=== PATIENT | male | born 1955 | race Caucasian/White ===

== ENCOUNTER 2018-12-26 11:33 | Outpatient (CLI) | payer MEDICARE, MEDICAID ==
[2018-12-26] VITALS (7 sets, daily range): BP systolic 122–171; BP diastolic 78–96
[~2018-12-26] VITALS: Ht 188 cm; Wt 89.8 kg
[2018-12-26] MEDS ORDERED: regadenoson 0.4mg/5ml syringe IV PRN (12:00)
[2018-12-26] MEDS ORDERED: aminophylline 250mg/10ml inj. IV ONE (12:00)
[2018-12-26] MEDS ORDERED: ASPI81TA52 PO (12:01)
[2018-12-26] MEDS ORDERED: ATOR40TA71 PO (12:01)
[2018-12-26] MEDS ORDERED: DOCU-148 PO (12:02)
[2018-12-26] MEDS ORDERED: CARV12.5 PO (12:02)
[2018-12-26] MEDS ORDERED: LISI-600 PO (12:03)
[2018-12-26] MEDS ORDERED: MULT-955 PO (12:03)
[2018-12-26] MEDS ORDERED: PANT-47 PO (12:05)
[2018-12-26] MEDS ORDERED: SENN-162 PO (12:09)
[2018-12-26] MEDS ORDERED: FLO0.4C PO (12:09)
[2018-12-26] MEDS ORDERED: MELA3TAB64 PO (12:10)
[2018-12-26] MEDS ORDERED: ASCO-22 PO (12:11)
[2018-12-26] MEDS ORDERED: TRAZ-251 PO (12:12)
[2018-12-26] MEDS ORDERED: SERT100T PO (12:12)
[2018-12-26] MEDS ORDERED: MORP-92 PO ×2 (12:13→12:14)
[2018-12-26] MEDS ORDERED: HYDR-4353 PO (12:16)
[2018-12-26] MEDS ORDERED: morphine 10mg/ml inj. IV ONE (13:25)
--- NOTE | 2018-12-26 13:28 | NUR ---
PT IN EXCRUCIATING PAIN AND REFUSING TO COMPLETE LEXISCAN. AFTER DISCUSSING REPERCUSSIONS OF NOT COMPLETING TEST (PT WILL NOT BE CLEARED FOR SURGERY) AND OFFERING ADDITIONAL PAIN MANAGEMENT PT RELUCTANTLY AGREED TO COMPLETE TEST. COSME GARCIA SPOKE WITH DR. YOUSIF AND MORPHINE 10MG IV STAT X 1 IS APPROVED.
[2018-12-27] MEDS ORDERED: LIDO1ADH TP (13:42)
[2018-12-27] MEDS ORDERED: BISA10SU60 RC (13:42)
[2018-12-27] MEDS ORDERED: NA P133E4 RC (14:21)
[2018-12-27] MEDS ORDERED: OXYM30MI NS (14:21)
[2018-12-27] MEDS ORDERED: MAGN800O PO (14:21)
[2018-12-27] MEDS ORDERED: HYDR-4353 PO (14:21)
[2018-12-27] MEDS ORDERED: DIPH25CA83 PO (14:21)
== END 2018-12-26 23:59 | disposition home or self-care (01) ==
LOC: RAD 11:33
PROVIDERS: ATTEND Internal Medicine Interventional Cardiology
DX: Z01.818 Encounter for other preprocedural examination (principal); I65.23 Occlusion and stenosis of bilateral carotid arteries; R94.31 Abnormal electrocardiogram [ECG] [EKG]; I10 Essential (primary) hypertension; Z99.3 Dependence on wheelchair
CPT/HCPCS: 78452; 93017; A9500; J2270; J2785

== ENCOUNTER 2018-12-28 11:14 | Inpatient (IN) | payer MEDICARE, MEDICAID ==
[2018-12-27 15:10] LABS: BASOPHILS % (AUTO) 0.4 % (0-1); EOSINOPHILS # (AUTO) 0.1 X10'3 (0-0.9); EOSINOPHILS % (AUTO) 3.3 % (0-6); LYMPHOCYTES # (AUTO) 1.2 X10'3 (1.1-4.8); LYMPHOCYTES % (AUTO) 27.6 % (21-51); MEAN CORPUSCULAR HEMOGLOBIN 28.9 PG (27.0-31.0); MEAN CORPUSCULAR HGB CONC 33.9 g/dL (33.0-36.5); MEAN CORPUSCULAR VOLUME 85.1 FL (78-98); MEAN PLATELET VOLUME 6.8 FL (7.4-10.4); MONOCYTES # (AUTO) 0.6 X10'3 (0-0.9); MONOCYTES % (AUTO) 13.1 % (2-12); NEUTROPHILS # (AUTO) 2.3 X10'3 (1.8-7.7); NEUTROPHILS % (AUTO) 55.6 % (42-75); PRE OP HEMATOCRIT 30.7 % (42.0-52.0); PRE OP PLATELET COUNT 362 X10'3 (140-440); RED CELL DISTRIBUTION WIDTH 16.4 % (11.5-14.5)
[2018-12-27 15:12] LABS: PRE OP HEMOGLOBIN 10.4 g/dL (14.0-17.9)
[2018-12-27 15:20] LABS: ALBUMIN 4.3 G/DL (3.4-5.0); ALBUMIN/GLOBULIN RATIO 1.5 (1.1-1.5); ALKALINE PHOSPHATASE 104 IU/L (46-116); BLOOD UREA NITROGEN 11 MG/DL (7-18); BUN/CREATININE RATIO 13.6 (5.4-32.0); CALCIUM 9.7 MG/DL (8.5-10.1); CHLORIDE 99 MMOL/L (99-107); CREATININE 0.81 MG/DL (0.60-1.10); PRE OP ALT 23 U/L (30-65); PRE OP ANION GAP 8 (8-16); PRE OP AST 15 U/L (10-37); PRE OP BILIRUB, TOTAL 0.5 MG/DL (0.0-1.0); PRE OP GLUCOSE 94 MG/DL (70-104); PRE OP POTASSIUM 3.9 MMOL/L (3.4-5.1); PRE OP SODIUM 136 MMOL/L (135-145); TOTAL PROTEIN 7.2 G/DL (6.4-8.2); eGFR > 90 ML/MIN
[~2018-12-28] VITALS: Ht 188 cm; Wt 80.0 kg
[2018-12-28] VITALS (17 sets, daily range): BP systolic 94–166; BP diastolic 50–93
[~2018-12-28 11:14] MED LIST: ASCO-22 PO; ASPI81TA52 PO; ATOR40TA71 PO; BISA10SU60 RC; CARV12.5 PO; DIPH25CA83 PO; DOCU-148 PO; FLO0.4C PO; HYDR-4353 PO; LIDO1ADH TP; LISI-600 PO; MAGN800O PO; MELA3TAB64 PO; MORP-92 PO; MULT-955 PO; NA P133E4 RC; OXYM30MI NS; PANT-47 PO; SENN-162 PO; SERT100T PO; TRAZ-251 PO; aminophylline inj. 10 ML IV ONE; cefazolin/dext.iso 2gm/50ml 50 ML IV ONE; famotidine 20mg tablet PO ONE; mupirocin 2% nasal ointment 1gm UD NS ONE; ringers solution, lacted 1,000 ML IV SCH; tranexamic acid inj. 1,000 MG in normal saline 100 ML IV ONE; vancomycin inj 1,500 MG in normal saline 300ml IV soln IV ONE
[2018-12-28] MEDS ORDERED: vancomycin 1,000mg inj ONE ×2 (13:15→16:05)
[2018-12-28] MEDS ORDERED: ceFAZolin 1000mg inj ONE (13:15)
[2018-12-28] MEDS ORDERED: tetracaine 1% (10mg/ml) pres. free inj. ONE (13:51)
[2018-12-28] MEDS ORDERED: MIDAZolam 1mg/ml 10ml vial ONE (13:54)
[2018-12-28] MEDS ORDERED: fentaNYL/PF 50MCG/1 ML 2ML syringe ONE (13:54)
[2018-12-28] MEDS ORDERED: calcium chloride 100 MG/1 ML inj IV ONE (14:52)
[2018-12-28] MEDS ORDERED: Thrombin (Bovine) 5,000 unit vial TP ONE (14:55)
[2018-12-28] MEDS ORDERED: ringers solution, lacted 1,000 ML IV SCH (14:59)
[2018-12-28] MEDS ORDERED: ondansetron/PF 4mg/2ml inj IV PRN ×2 (15:00→16:25)
[2018-12-28] MEDS ORDERED: meperidine/PF 25mg/ml syringe IV PRN ×3 (15:00)
[2018-12-28] MEDS ORDERED: morphine 4 MG/ML inj SYRINge IV PRN ×2 (15:00)
[2018-12-28] MEDS ORDERED: proCHLORperazine 10 MG/2 ml inj IV PRN (15:00)
[2018-12-28] MEDS ORDERED: propofol inj 20 ML IV ONE ×2 (16:13)
[2018-12-28] MEDS ORDERED: diphenhydrAMINE 25mg capsule PO PRN ×2 (16:25)
[2018-12-28] MEDS ORDERED: oxyCODONE IR 5mg (immed. release) tablet PO PRN (16:25)
[2018-12-28] MEDS ORDERED: acetaminophen 325mg tablet PO PRN (16:25)
[2018-12-28] MEDS ORDERED: bisacodyl 10mg suppository rectal RC PRN ×2 (16:25→18:20)
[2018-12-28] MEDS ORDERED: HYDROmorphone inj. 0.5 MG/0.5 ML DISP.SYRIN IV PRN (16:25)
--- NOTE | 2018-12-28 16:45 | NUR ---
ADMITTED TO PACU FROM OR ACCOMPANIED BY ANESTHESIA. INTIAL PHYSICAL ASSESSMENT DONE AND RECORDED. REPORT RECEIVED FROM ANESTHESIA.
--- NOTE | 2018-12-28 17:40 | NUR ---
Patient arrived to floor, and wheelchair. Patient alert, good CMS, 2L O2, no skin issues.
--- NOTE | 2018-12-28 17:45 | NUR ---
PACU DISCHARGE CRITERIA MET, REPORT GIVEN TO FLOOR. DENIES PAIN OR DISCOMFORT, TRANSFERRED TO ROOM IN STABLE GOOD CONDITION.
--- NOTE | 2018-12-28 18:18 | NUR ---
Problems reprioritized. Patient report given, questions answered & plan of care reviewed with Karie RUBIO.
[2018-12-28] MEDS ORDERED: MAGNESIUM HYDROXIDE 2400 MG PO PRN (18:20)
[2018-12-28] MEDS ORDERED: non-formulary drug (Na Phos,M-B/Na Phos,Di-Ba* (Fleet's Enema*) 1 BOTTLE) RC SCH (18:20)
[2018-12-28] MEDS: oxyCODONE IR 5mg (immed. release) tablet PO PRN ×2 (19:04→23:47)
[2018-12-28] MEDS ORDERED: HYDROcodone/acetaminophen 10/325mg tab PO SCH (20:00)
[2018-12-28] MEDS ORDERED: tranexamic acid inj. 800 MG in normal saline 100ml IV soln 100 ML IV ONE (20:00)
[2018-12-28] MEDS ORDERED: vancomycin/NS 1 GM ADD-VANTAGE 250 ML IV SCH (20:00)
[2018-12-28] MEDS: diphenhydrAMINE 25mg capsule PO SCH (20:07)
[2018-12-28] MEDS: acetaminophen 325mg tablet PO SCH (20:07)
[2018-12-28] MEDS: docusate sod 100mg capsule PO SCH (20:07)
[2018-12-28] MEDS: morphine ER 15mg tablet PO SCH ×2 (20:09→21:44)
[2018-12-28] MEDS: carVEDilol 12.5mg tablet PO SCH (20:09)
[2018-12-28] MEDS: Melatonin 3mg tablet PO SCH (20:23)
[2018-12-28] MEDS: traZODone 50mg tablet PO SCH (20:24)
[2018-12-28] MEDS: atorvastatin 20mg tablet PO SCH (20:24)
[2018-12-28] MEDS: gabapentin 300mg capsule PO SCH (20:24)
[2018-12-28] MEDS: potassium cl 20mEq in 1/2 NS 1,000 ML IV SCH (20:26)
[2018-12-28] MEDS ORDERED: sennosides 8.6mg tablet PO SCH (21:00)
[2018-12-28] MEDS: sennosides 8.6mg tablet PO SCH (21:00)
[2018-12-28] MEDS: ceFAZolin 1GM/D5W- ADD-VANTAGE 50 ML IV SCH (23:47)
[2018-12-29] VITALS (8 sets, daily range): BP systolic 87–134; BP diastolic 46–65
[2018-12-29] MEDS: potassium cl 20mEq in 1/2 NS 1,000 ML IV SCH ×4 (00:24→19:29)
[2018-12-29] MEDS ORDERED: HYDROcodone/acetaminophen 10/325mg tab PO PRN (01:08)
[2018-12-29] MEDS: acetaminophen 325mg tablet PO SCH ×4 (01:57→20:03)
[2018-12-29] MEDS: diphenhydrAMINE 25mg capsule PO SCH ×4 (01:57→19:59)
[2018-12-29] MEDS: oxyCODONE IR 5mg (immed. release) tablet PO PRN ×3 (04:26→16:44)
--- NOTE | 2018-12-29 06:00 | NUR ---
Patient in room ORTHO 4023. I have received report from Karie RUBIO and had the opportunity to ask questions and assume patient care.
[2018-12-29 06:01] LABS: BASOPHILS % (AUTO) 0.1 % (0-1); EOSINOPHILS % (AUTO) 0.1 % (0-6); HEMATOCRIT 24.1 % (42.0-52.0); HEMOGLOBIN 8.3 g/dl (14.0-17.9); LYMPHOCYTES # (AUTO) 0.7 X10'3 (1.1-4.8); LYMPHOCYTES % (AUTO) 12.4 % (21-51); MEAN CORPUSCULAR HEMOGLOBIN 29.5 PG (27.0-31.0); MEAN CORPUSCULAR HGB CONC 34.7 g/dL (33.0-36.5); MEAN PLATELET VOLUME 6.7 FL (7.4-10.4); MONOCYTES # (AUTO) 0.7 X10'3 (0-0.9); MONOCYTES % (AUTO) 13.8 % (2-12); NEUTROPHILS # (AUTO) 3.9 X10'3 (1.8-7.7); NEUTROPHILS % (AUTO) 73.6 % (42-75); PLATELET COUNT 280 X10'3 (140-440); RED BLOOD COUNT 2.83 X10'6 (4.70-6.10); RED CELL DISTRIBUTION WIDTH 15.9 % (11.5-14.5); WHITE BLOOD COUNT 5.3 X10'3 (4.5-11.0)
--- NOTE | 2018-12-29 06:31 | NUR ---
Problems reprioritized. Patient report given, questions answered & plan of care reviewed with JOANNE EUBANKS.
[2018-12-29 06:32] LABS: ANION GAP 12 (8-16); CHLORIDE 103 MMOL/L (99-107); POTASSIUM 3.9 MMOL/L (3.5-5.1); SODIUM 138 MMOL/L (135-145); TOTAL CARBON DIOXIDE 23.4 MMOL/L (24-32)
[2018-12-29] MEDS: HYDROmorphone 1 mg/ml syringe IV PRN ×2 (06:33→12:46)
[2018-12-29] MEDS: ceFAZolin 1GM/D5W- ADD-VANTAGE 50 ML IV SCH (08:29)
[2018-12-29] MEDS: LIDOcaine 5% patch TP SCH (08:30)
[2018-12-29] MEDS: gabapentin 300mg capsule PO SCH ×3 (08:31→20:02)
[2018-12-29] MEDS: docusate sod 100mg capsule PO SCH ×2 (08:31→19:59)
[2018-12-29] MEDS: sertraline 50mg tablet PO SCH (08:31)
[2018-12-29] MEDS: aspirin 81mg tablet.DR PO SCH (08:31)
[2018-12-29] MEDS: carVEDilol 12.5mg tablet PO SCH ×2 (08:31→19:58)
[2018-12-29] MEDS: multivitamins, therapeutics tablet PO SCH (08:32)
[2018-12-29] MEDS: tamsulosin 0.4mg capsule PO SCH (08:32)
[2018-12-29] MEDS: morphine ER 15mg tablet PO SCH ×3 (08:32→21:00)
[2018-12-29] MEDS: ascorbic acid 500mg tablet PO SCH (08:32)
[2018-12-29] MEDS: lisinopril 10 MG tablet PO SCH (08:32)
[2018-12-29] MEDS: pantoprazole 40mg Tablet.DR PO SCH (08:32)
[2018-12-29] MEDS: enoxaparin 40mg/0.4ml syringe SQ SCH (08:33)
--- NOTE | 2018-12-29 16:08 | NUR ---
Joint replacement consult: Pt seen by RD for written/verbal high protein ed w/ RD contact information provided. Pt agrees to cheese stick TIDWM, lemon-pot[place] soda TID, ensure pudding TIDWM, double patel w/ breakfast, and roast beef sandwich at lunch. Dietary notified. Pt reports mainly eats smaller meals throughout the day and endorses good appetite. LBM 12/26. Will continue to monitor. Addendum: 12/29/18 at [address] Amended: Links added.
--- NOTE | 2018-12-29 18:00 | NUR ---
Patient in room [facility]TH[facility] 4023. I have received report from JOANNE Farooq and had the opportunity to ask questions and assume patient care.
--- NOTE | 2018-12-29 18:31 | NUR ---
Problems reprioritized. Patient report given, questions answered & plan of care reviewed with Martina RUBIO.
[2018-12-29] MEDS: celeCOXIB 100mg capsule PO SCH (19:58)
[2018-12-29] MEDS: sennosides 8.6mg tablet PO SCH (20:02)
[2018-12-29] MEDS: atorvastatin 20mg tablet PO SCH (20:03)
[2018-12-29] MEDS: Melatonin 3mg tablet PO SCH (21:00)
[2018-12-29] MEDS: traZODone 50mg tablet PO SCH (21:30)
--- NOTE | 2018-12-29 23:08 | NUR ---
Pt. BP 87/47 ,HR 82 .Bolus of 250 given per nursing protocol.We will continue with pt. care.
[2018-12-30] VITALS (14 sets, daily range): BP systolic 83–137; BP diastolic 42–77
[2018-12-30] MEDS: diphenhydrAMINE 25mg capsule PO SCH ×4 (02:00→20:22)
[2018-12-30] MEDS: oxyCODONE IR 5mg (immed. release) tablet PO PRN ×2 (02:49→16:10)
[2018-12-30] MEDS: acetaminophen 325mg tablet PO SCH ×3 (02:50→14:37)
[2018-12-30] MEDS: potassium cl 20mEq in 1/2 NS 1,000 ML IV SCH (04:53)
[2018-12-30] MEDS: oxymetazoline 15 ML nasal spray NS PRN ×2 (05:21→14:40)
[2018-12-30 05:39] LABS: BASOPHILS % (AUTO) 0.2 % (0-1); EOSINOPHILS # (AUTO) 0.1 X10'3 (0-0.9); EOSINOPHILS % (AUTO) 1.9 % (0-6); LYMPHOCYTES # (AUTO) 0.9 X10'3 (1.1-4.8); LYMPHOCYTES % (AUTO) 16.5 % (21-51); MEAN CORPUSCULAR HEMOGLOBIN 29.6 PG (27.0-31.0); MEAN CORPUSCULAR HGB CONC 34.4 g/dL (33.0-36.5); MEAN CORPUSCULAR VOLUME 86.1 FL (78-98); MEAN PLATELET VOLUME 6.4 FL (7.4-10.4); MONOCYTES # (AUTO) 0.9 X10'3 (0-0.9); MONOCYTES % (AUTO) 17.8 % (2-12); NEUTROPHILS # (AUTO) 3.3 X10'3 (1.8-7.7); NEUTROPHILS % (AUTO) 63.6 % (42-75); PLATELET COUNT 225 X10'3 (140-440); RED BLOOD COUNT 2.28 X10'6 (4.70-6.10); RED CELL DISTRIBUTION WIDTH 15.8 % (11.5-14.5); WHITE BLOOD COUNT 5.3 X10'3 (4.5-11.0)
[2018-12-30 05:45] LABS: HEMATOCRIT 19.6 % (42.0-52.0); HEMOGLOBIN 6.7 g/dl (14.0-17.9)
--- NOTE | 2018-12-30 06:00 | NUR ---
Patient in room [facility]TH[facility] 4023. I have received report from Martina RUBIO and had the opportunity to ask questions and assume patient care.
--- NOTE | 2018-12-30 06:35 | NUR ---
Problems reprioritized. Patient report given, questions answered & plan of care reviewed with JOANNE Farooq.
[2018-12-30] MEDS: pantoprazole 40mg Tablet.DR PO SCH (07:58)
[2018-12-30] MEDS: sertraline 50mg tablet PO SCH (07:58)
[2018-12-30] MEDS: gabapentin 300mg capsule PO SCH ×3 (07:58→20:22)
[2018-12-30] MEDS: ascorbic acid 500mg tablet PO SCH (07:58)
[2018-12-30] MEDS: morphine ER 15mg tablet PO SCH ×3 (07:58→22:03)
[2018-12-30] MEDS: tamsulosin 0.4mg capsule PO SCH (07:58)
[2018-12-30] MEDS: celeCOXIB 100mg capsule PO SCH ×2 (07:58→20:21)
[2018-12-30] MEDS: aspirin 81mg tablet.DR PO SCH (07:58)
[2018-12-30] MEDS: multivitamins, therapeutics tablet PO SCH (07:58)
[2018-12-30] MEDS: docusate sod 100mg capsule PO SCH ×2 (07:58→20:22)
[2018-12-30] MEDS: enoxaparin 40mg/0.4ml syringe SQ SCH (07:59)
[2018-12-30] MEDS: LIDOcaine 5% patch TP SCH (08:00)
[2018-12-30] MEDS: lisinopril 10 MG tablet PO SCH (08:00)
[2018-12-30] MEDS: carVEDilol 12.5mg tablet PO SCH ×2 (08:00→20:22)
--- NOTE | 2018-12-30 12:00 | NUR ---
Patient has not voided, Bladder scanned and volume was 320ml. Will bladder scan again if patient does not void.
[2018-12-30 13:49] LABS: HEMATOCRIT 24.7 % (42.0-52.0); HEMOGLOBIN 8.5 g/dl (14.0-17.9); MEAN CORPUSCULAR HEMOGLOBIN 29.6 PG (27.0-31.0); MEAN CORPUSCULAR HGB CONC 34.3 g/dL (33.0-36.5); MEAN CORPUSCULAR VOLUME 86.3 FL (78-98); PLATELET COUNT 225 X10'3 (140-440); RED BLOOD COUNT 2.86 X10'6 (4.70-6.10); WHITE BLOOD COUNT 5.2 X10'3 (4.5-11.0)
--- NOTE | 2018-12-30 15:30 | NUR ---
Bladder scanned patient. Urine volume was 638ml. Spoke to Dr. Mcgowan, when the urine volume is over 1,000ml to give patient a choice of straight cath or ferrell catheter placement.
[2018-12-30] MEDS ORDERED: acetaminophen 325mg tablet PO PRN (16:25)
--- NOTE | 2018-12-30 17:55 | NUR ---
Bladder Scanned patient: 826ml. Patient is attempting to void in urinal. Will reassess
--- NOTE | 2018-12-30 18:15 | NUR ---
Patient in room [facility]TH[facility] 4023. I have received report from JOANNE Farooq and had the opportunity to ask questions and assume patient care.
--- NOTE | 2018-12-30 18:23 | NUR ---
Problems reprioritized. Patient report given, questions answered & plan of care reviewed with Martina RUBIO.
[2018-12-30] MEDS: magnesium hydroxide 30ml (MOM) UD suspension PO PRN (20:21)
[2018-12-30] MEDS: sennosides 8.6mg tablet PO SCH (20:22)
[2018-12-30] MEDS: atorvastatin 20mg tablet PO SCH (20:22)
[2018-12-30] MEDS: traZODone 50mg tablet PO SCH (22:03)
[2018-12-30] MEDS: Melatonin 3mg tablet PO SCH (22:03)
[2018-12-31] MEDS: diphenhydrAMINE 25mg capsule PO SCH ×2 (02:00→09:07)
[2018-12-31] MEDS: oxyCODONE IR 5mg (immed. release) tablet PO PRN ×2 (02:56→11:06)
[2018-12-31] MEDS: oxymetazoline 15 ML nasal spray NS PRN (04:25)
[2018-12-31 05:59] LABS: BASOPHILS % (AUTO) 0.2 % (0-1); EOSINOPHILS # (AUTO) 0.2 X10'3 (0-0.9); EOSINOPHILS % (AUTO) 3.3 % (0-6); HEMATOCRIT 23.2 % (42.0-52.0); LYMPHOCYTES # (AUTO) 0.7 X10'3 (1.1-4.8); LYMPHOCYTES % (AUTO) 14.3 % (21-51); MEAN CORPUSCULAR HEMOGLOBIN 29.8 PG (27.0-31.0); MEAN CORPUSCULAR HGB CONC 34.6 g/dL (33.0-36.5); MONOCYTES # (AUTO) 0.9 X10'3 (0-0.9); MONOCYTES % (AUTO) 17.9 % (2-12); NEUTROPHILS # (AUTO) 3.3 X10'3 (1.8-7.7); NEUTROPHILS % (AUTO) 64.3 % (42-75); PLATELET COUNT 244 X10'3 (140-440); RED CELL DISTRIBUTION WIDTH 14.9 % (11.5-14.5); WHITE BLOOD COUNT 5.1 X10'3 (4.5-11.0)
[2018-12-31 06:00] VITALS: BP 95/50
--- NOTE | 2018-12-31 06:20 | NUR ---
Patient in room [facility]TH[facility] 4023. I have received report from Martina RUBIO and had the opportunity to ask questions and assume patient care.
--- NOTE | 2018-12-31 06:28 | NUR ---
Problems reprioritized. Patient report given, questions answered & plan of care reviewed with JOANNE Farooq.
[2018-12-31] MEDS: tamsulosin 0.4mg capsule PO SCH (07:12)
[2018-12-31 07:44] LABS: ANISOCYTOSIS 1+; PLATELET ESTIMATE NORMAL; TOTAL CELLS COUNTED 100
[2018-12-31] MEDS: lisinopril 10 MG tablet PO SCH (08:00)
[2018-12-31] MEDS: carVEDilol 12.5mg tablet PO SCH (08:00)
--- NOTE | 2018-12-31 08:30 | NUR ---
Patient is unable to void at this time and bladder scan revealed >900ml. Per Dr. Mcgowan Shane may be placed for urinary retention. Shane Catheter was placed, patient tolerated well.
[2018-12-31] MEDS: sertraline 50mg tablet PO SCH (09:03)
[2018-12-31] MEDS: ascorbic acid 500mg tablet PO SCH (09:04)
[2018-12-31] MEDS: pantoprazole 40mg Tablet.DR PO SCH (09:04)
[2018-12-31] MEDS: multivitamins, therapeutics tablet PO SCH (09:04)
[2018-12-31] MEDS: celeCOXIB 100mg capsule PO SCH (09:04)
[2018-12-31] MEDS: docusate sod 100mg capsule PO SCH (09:04)
[2018-12-31] MEDS: gabapentin 300mg capsule PO SCH (09:04)
[2018-12-31] MEDS: morphine ER 15mg tablet PO SCH (09:04)
[2018-12-31] MEDS: aspirin 81mg tablet.DR PO SCH (09:04)
[2018-12-31] MEDS: LIDOcaine 5% patch TP SCH (09:05)
[2018-12-31] MEDS: enoxaparin 40mg/0.4ml syringe SQ SCH (09:05)
[2018-12-31 10:00] VITALS: BP 105/56
[2018-12-31] MEDS: magnesium hydroxide 30ml (MOM) UD suspension PO PRN (10:23)
--- NOTE | 2018-12-31 13:40 | NUR ---
Patient stable for transfer to [facility] today. All belongings sent with patient. IV out.
== END 2018-12-31 11:30 | DRG 470 ==
LOC: PAS IN 11:14 → EDSTATUS 13:45 → ORTHO 4S 17:45
PROVIDERS: ADMIT Orthopaedic Surgery; ATTEND Orthopaedic Surgery
PROC: 3E0R3BZ Introduction of Anesthetic Agent into Spinal Canal, Percutaneous Approach (ICD-10-PCS; 2018-12-28)
PROC: 0SR906Z Replacement of Right Hip Joint with Oxidized Zirconium on Polyethylene Synthetic Substitute, Open Approach (ICD-10-PCS; principal; 2018-12-28 13:52)
PROC: 30233N1 Transfusion of Nonautologous Red Blood Cells into Peripheral Vein, Percutaneous Approach (ICD-10-PCS; 2018-12-30)
DX: M16.11 Unilateral primary osteoarthritis, right hip (principal); D62 Acute posthemorrhagic anemia; E78.5 Hyperlipidemia, unspecified; I10 Essential (primary) hypertension; K21.9 Gastro-esophageal reflux disease without esophagitis; N40.1 Benign prostatic hyperplasia with lower urinary tract symptoms; R33.8 Other retention of urine; F32.9 Major depressive disorder, single episode, unspecified; G89.29 Other chronic pain; Z86.73 Personal history of transient ischemic attack (TIA), and cerebral infarction without residual deficits; Z79.899 Other long term (current) drug therapy; Z79.82 Long term (current) use of aspirin
CPT/HCPCS: 36415; 72170; 80051; 80053; 82948; 85025; 85027; 86885; 86900; 86901; 86920; 87081; 97110; 97112; 97162; 97530; 97535; A4215; A7000; C1758; C1776; G0378; J0280; J0690; J1170; J1650; J2250; J2704; J3010; J3370; J3480; J7120; P9016; Q0163